=== PATIENT | male | born 1945 | race Caucasian/White ===

== ENCOUNTER 2017-07-15 18:10 | Emergency (ER) | payer OTHER ==
[~2017-07-15] VITALS: Ht 177.8 cm; Wt 92.5 kg
[2017-07-15] MEDS ORDERED: AVAPRO150 MG (18:39)
[2017-07-15] MEDS ORDERED: CRESTOR5 MG (18:40)
[2017-07-15] MEDS ORDERED: PREVACID30 M1 (18:40)
[2017-07-15] MEDS ORDERED: CANNABIS OIL (18:42)
== END 2017-07-15 22:29 | disposition home or self-care (01) ==
LOC: ER 18:10
DX: S00.03XA Contusion of scalp, initial encounter (principal); S40.011A Contusion of right shoulder, initial encounter; W18.09XA Striking against other object with subsequent fall, initial encounter; Y93.55 Activity, bike riding; Y92.488 Other paved roadways as the place of occurrence of the external cause; Y99.8 Other external cause status